=== PATIENT | male | born 1995 | race African-American/Black ===

== ENCOUNTER 2016-09-28 14:00 | Outpatient (RCR) | payer OTHER ==
[~2016-09-28 14:00] MED LIST: ADDERALL20 MG PO; CEPHALEXIN500 M1 PO; NORCO 325 MG-51 TAB PO
== END 2016-10-28 11:17 | disposition home or self-care (01) ==
LOC: WSPT 14:00
DX: Z47.89 Encounter for other orthopedic aftercare (principal); M67.873 Other specified disorders of tendon, right ankle and foot